=== PATIENT | female | born 1975 | race Caucasian/White ===

== ENCOUNTER → 2020-01-09 | Outpatient (CLI) | payer OTHER ==
--- NOTE | 2020-01-09 10:31 | XR ---
EXAMINATION TYPE: XR lumbar spine 2 or 3V DATE OF EXAM: 01/09/2020 CLINICAL HISTORY: Chronic lower back pain. Spondylosis of lumbar spine. TECHNIQUE: Frontal and lateral images of the lumbar spine obtained COMPARISON: None. FINDINGS: There are 5 lumbar type vertebral bodies identified. The lumbar spine shows satisfactory alignment without evidence of acute fracture or dislocation. Vertebral body heights and disk space he ights are within normal limits. There is anterior osteophytic spurring at L2-L3 and L3-L4. No evidenc e of spondylolisthesis. The overlying soft tissue appears unremarkable. IMPRESSION: 1. No acute fracture or dislocation is seen in the lumbar spine. No spondylolisthesis. 2. Mild degenerative endplate spurring from L2 through L4.
== END | disposition home or self-care (01) ==
LOC: RADXRYALE 08:07
PROVIDERS: ATTEND Internal Medicine
DX: M47.816 Spondylosis without myelopathy or radiculopathy, lumbar region (principal)
CPT/HCPCS: 72100

== ENCOUNTER → 2020-08-28 | Outpatient (CLI) | payer OTHER ==
--- NOTE | 2020-08-28 10:23 | XR ---
Left RIBS HISTORY: Pain 4 views of left RIBS Bone mineralization is maintained. There is no fracture evident. No pneumothorax or pleural effusion, no evident airspace disease noted in the left lung. IMPRESSION: No abnormality evident. Consider bone scan or additional imaging as indicated.
== END | disposition home or self-care (01) ==
LOC: RADXRMAIN 09:35
PROVIDERS: ATTEND Internal Medicine
DX: R07.81 Pleurodynia (principal)

== ENCOUNTER → 2020-10-13 | Outpatient (CLI) | payer OTHER ==
--- NOTE | 2020-10-13 14:01 | EST ---
EXERCISE STRESS AGE: 45 SEX: Female HT: 5'5" WT: 181 lbs. PROTOCOL: Axel STAGE: 3 DURATION OF EXERCISE: 9 minutes HEART RATE REST: 86 BLOOD PRESSURE REST: 122/73 MAXIMUM HEART RATE ACHIEVED: 163 MAXIMUM BLOOD PRESSURE: 165/104 85% MPHR: 147 100% MPHR: 173 METS: 10.5 INDICATIONS: Chest pain CLINICAL INFORMATION: This is a walking stress test, regular stress test. Baseline EKG revealed normal sinus rhythm with a precordial nonspecific ST and T-wave changes. Patient walked on a standard Axel protocol for a total duration of 9 minutes, achieved a maximal heart rate of 163 beats per minute developed fatigue, shortness of breath but did not have any angina or arrhythmia. EKG remained inconclusive. There was no arrhythmia. By EKG criteria, this is an inconclusive stress test with fair exercise capacity. There were minor resting EKG changes to begin with but patient did not have any angina or arrhythmia. FINAL IMPRESSION: 1. Fair exercise capacity. 2. Technically inconclusive stress test because of resting EKG changes. 3. Patient did not have any angina. MMODL / IJN: [id number] /
== END | disposition home or self-care (01) ==
LOC: RADNMMAIN 08:39
PROVIDERS: ATTEND Internal Medicine
DX: R07.9 Chest pain, unspecified (principal)
CPT/HCPCS: 93017

== ENCOUNTER → 2021-05-15 | Outpatient (CLI) | payer MEDICAID ==
--- NOTE | 2021-05-18 13:30 | MM ---
Reason for exam: screening (asymptomatic). Last mammogram was performed 8 years and 1 month ago. History: Took hormonal contraceptives for 6 years beginning at age 32. Physical Findings: A clinical breast exam by your physician is recommended on an annual basis and results should be correlated with mammographic findings. MG 3D Screening Mammo W/Cad Bilateral CC and MLO view(s) were taken. Prior study comparison: April 20, 2013, CAD bilateral diagnostic mammogram. October 28, 2010, CAD bilateral diagnostic mammogram. The breast tissue is heterogeneously dense. This may lower the sensitivity of mammography. There are benign appearing round calcifications bilaterally. Focal asymmetry 6mm middle depth upper aspect. ASSESSMENT: Incomplete: need additional imaging evaluation, BI-RAD 0 RECOMMENDATION: Special view mammogram of the left breast. If lesion persists on supplemental views, image directed ultrasound is recommended. [facility] will attempt to contact patient to return for supplemental views and ultrasound if indicated.
== END | disposition home or self-care (01) ==
LOC: RADMAMWWP 16:13
PROVIDERS: ATTEND Internal Medicine
DX: Z12.31 Encounter for screening mammogram for malignant neoplasm of breast (principal)
CPT/HCPCS: 77063; 77067

== ENCOUNTER → 2021-05-27 | Outpatient (CLI) | payer MEDICAID ==
--- NOTE | 2021-05-27 10:52 | MM ---
Reason for exam: additional evaluation requested from abnormal screening. Last mammogram was performed less than 1 month ago. History: Took hormonal contraceptives for 6 years beginning at age 32. Physical Findings: Nurse did not find any significant physical abnormalities on exam. MG 3D Work Up W/Cad LT Spot compression MLO, XCCL, and ML view(s) were taken of the left breast. Prior study comparison: May 15, 2021, bilateral MG 3d screening mammo w/cad. April 20, 2013, CAD bilateral diagnostic mammogram. The breast tissue is heterogeneously dense. This may lower the sensitivity of mammography. There is no discrete abnormality including area of concern on compression. No significant new findings when compared with previous films. These results were verbally communicated with the patient and result sheet given to the patient on 05/27/21. ASSESSMENT: Benign, BI-RAD 2 RECOMMENDATION: Return to routine screening mammogram schedule for both breasts.
== END | disposition home or self-care (01) ==
LOC: RADMAMWWP 09:09
PROVIDERS: ATTEND Internal Medicine
DX: R92.2 Inconclusive mammogram (principal)
CPT/HCPCS: 77061; 77065

== ENCOUNTER → 2023-01-17 | Outpatient (CLI) | payer OTHER ==
[2023-01-17 17:02] LABS: ALT 30 U/L (8-44); AST 25 U/L (13-35); Albumin 4.7 d/dL (3.8-4.9); Albumin/Globulin Ratio 1.96 Ratio (1.60-3.17); Alkaline Phosphatase 69 U/L (41-126); BUN/Creat Ratio 15.11 Ratio (12.00-20.00); Blood Urea Nitrogen 13.6 mg/dL (9.0-27.0); Calcium 10.1 mg/dL (8.7-10.3); Carbon Dioxide 27.3 mmol/L (21.6-31.8); Chloride 103 mmol/L (96-109); Chol/HDL Ratio 5.39 Ratio; Globulin 2.4 d/dL (1.6-3.3); Glucose 92 mg/dL (70-110); LDL Cholesterol,Calculated 144.8 mg/dL (0.0-131.0); Magnesium 2.2 mg/dL (1.5-2.4); Potassium 4.7 mmol/L (3.5-5.5); Sodium 139 mmol/L (135-145); Total Protein 7.1 d/dL (6.2-8.2)
[2023-01-17 17:20] LABS: Basophils # (A) 0.11 X 10*3/uL (0.00-0.10); Basophils % (A) 1.4 %; Eosinophils # (A) 0.32 X 10*3/uL (0.04-0.35); Eosinophils % (A) 3.9 %; HCT 43.7 % (37.2-46.3); HGB 14.6 d/dL (12.0-15.0); Lymphocytes # (A) 3.63 X 10*3/uL (0.90-5.00); Lymphocytes % (A) 44.8 %; MCH 29.5 pg (27.0-32.0); MCHC 33.4 d/dL (32.0-37.0); MCV 88.3 FL (80.0-97.0); Mean Platelet Volume 10.5 FL (9.5-12.2); Monocytes % (A) 6.2 %; NRBC Per 100 WBC 0 X 10*3/uL (0.00-0.01); Neutrophils # (A) 3.51 X 10*3/uL (1.80-7.70); Neutrophils % (A) 43.2 %; Platelet Count 332 X 10*3/uL (140-440); RBC 4.95 X 10*6/uL (4.10-5.20); RDW 11.9 % (11.5-14.5); WBC 8.11 X 10*3/uL (4.50-10.00)
[2023-01-17 20:18] LABS: Appearance,Urine Clear (Clear); Bilirubin,Urine Negative (Negative); Blood,Urine Trace (Negative); Color,Urine Yellow (Yellow); Ketones,Urine Negative (Negative); Nitrite,Urine Negative (Negative); PH, Urine 6.5; Specific Gravity,Urine 1.014 (1.001-1.030); Urobilinogen,Urine 0.2 E.U./DL
[2023-01-17 20:22] LABS: Bacteria,Urine None Seen (None Seen)
== END | disposition home or self-care (01) ==
LOC: LABWHC1 09:07
PROVIDERS: ATTEND Internal Medicine
DX: Z00.00 Encounter for general adult medical examination without abnormal findings (principal); I10 Essential (primary) hypertension; E03.9 Hypothyroidism, unspecified
CPT/HCPCS: 36415; 80053; 80061; 81001; 83036; 83735; 84439; 84443; 85025

== ENCOUNTER → 2023-07-15 | Outpatient (CLI) | payer BC ==
--- NOTE | 2023-07-15 10:25 | XR ---
EXAMINATION TYPE: XR lumbar spine 2 or 3V DATE OF EXAM: 07/15/2023 9:01 AM CLINICAL INDICATION:Female, 48 years old with history of S39.92XAINJURY OF LOWER BACK, INITIAL ENCOUN TER; [facility] COMPARISON: None TECHNIQUE: XR lumbar spine 2 or 3V - Frontal, lateral and coned in L5-S1 lateral views of the spine. FINDINGS: No evidence of any acute osseous pathology. No evidence of loss of vertebral body height i s seen. There is normal alignment of the lumbar vertebral bodies. Mild scattered disc space narrowing . Multilevel marginal osteophyte formation throughout the visualized spine. There is facet joint arth ropathy throughout the spine. Scattered at least mild neural foraminal stenosis. IMPRESSION: 1. No acute fracture. 2. Mild multilevel disc degeneration.
== END | disposition home or self-care (01) ==
LOC: RADXRMAIN 08:41
PROVIDERS: ATTEND Internal Medicine
DX: M51.36 Other intervertebral disc degeneration, lumbar region (principal)
CPT/HCPCS: 72100

== ENCOUNTER → 2023-09-15 | Outpatient (CLI) | payer BC ==
[2023-09-15 08:28] VITALS: BP 137/84; PULSE 69; RESP 16; TEMP 96.9
--- NOTE | 2023-09-15 13:31 | P.PAINPG ---
PQRS Measure Charge Sheet Comment: HISTORY OF PRESENT ILLNESS: A 48 yr old female as a referral from Dr Snider presents today w severe and chronic LBP x 6 mo secondary to DDD, spondylosis and facet arthropathy without myelopathy for evaluation. Pt states pain level is provoked at 6 /10 in intensity, constant, localized in the lumbar spine, predominantly axial, achy in character w occasional shooting pain towards the L pelvis and LLE. Pain is provoked by sitting and laying supine. Pain is alleviated by heat, ice, medications (Tramadol, Ibu, Tyl, Baclofen),. Oswestry axial pain score at 22. PMH: OA, HTN, Hyperlipidemia, Hypothyroidism PSH: Tubal Ligation, Uterine Ablation SH: Hx of tobacco use, Occasional ETOH use, No illicit drug use FH: Fa- CAD All: See list Meds: See list REVIEW OF ORGAN SYSTEMS: CONSTITUTIONAL: No fevers or chills. No recent weight loss. NEUROLOGICAL: + numbness and tingling along the distal extremities. No seizure disorders or headaches. MUSCULOSKELETAL: + pain PSYCHIATRIC: Denies current depression or suicidal thoug hts. Physical Examinations : Constitutional : Cooperative , not in acute distress . Neurologic : Cranial nerve II to XII intact. No focal neurological deficits. Psychiatric : alert & oriented x 3. Matching mood & appropriate affect. Judgment & insight intact. Musculoskeletal : Cervical Spine Motor strength in the deltoid and biceps: Normal right side. Normal Left side Motor strength biceps and the wrist extensors: Normal right side . Normal left side Motor strength in the triceps muscle: Normal right side. Normal left side Deep tendon reflexes: Normal at the biceps. Normal at Brachioradialis. Normal at triceps Vertebral body tenderness to deep palpation over Cervical facet loading test: positive bilaterally Spurling test: positive bilaterally Neck distraction test: positive bilaterally Pro sign: positive bilaterally Lumbar spine Motor strength lower extremities ,thigh and legs 5/5 Right side , 5/5 Left side Deep tendon reflexes : Normal Knee Jerk. Normal Ankle Jerk Vertebral body tenderness over L5 Bansal Test positive Lumbar facet Loading Test: positive Right / positive Left Range of motion of the lumbar spine Flexion 30 degrees, extension 10 degrees Straight Leg Raise test: Left/ Right positive at degrees Deisy test: positive right / positive left. Severe tenderness over the Sacroiliac joint on the Right / Left sides Gaenslen test: positive bilaterally Seated flexion test: positive bilaterally. Sacral spine : Severe tenderness over the Sacroiliac joint: right side / left side Range of motion: Flexion of the lumbar spine <60 degrees Range of motion: Extension of the lumbar spine <20 degrees Gaenslen's Test positive on R Deisy test: positive right side / left side Thigh Thrust Test Sacral Thrust Test Imaging: MRI noncontrast of the lumbar spine from 08/19/2023 reviewed Assessment/ Plan : Lumbar DDD Recommendation of PT x 6 wks M 51.36, M46.1 Would benefit from L paramedian ROSALIND L5-S1 or L SI injection. Risks, benefits of procedure discussed and patient verbalized understanding. Admits to anti- coagulant use or medical history of diabetes. Protocol for discontinuation/ continuation of medications yosi procedure discussed. Minimal anesthesia provided, if clinically indicated, consisting of Versed and Fentanyl. All questions answered. I have spent greater than 30 minutes on patient care today. Dr Grullon was available by phone for the evaluation of this patient. The time was used to review the medical records including relevant urine studies and Prescription history (MAPs), review of the available imaging, evaluation and examination of the patient, coordination of care with the medical staff and if applicable referring physicians, as well as creation of the medical record Home Medications: Ambulatory Orders Acetaminophen Tab [Tylenol Tab] 500 mg PO Q6H 09/15/23 Baclofen 10 mg PO 09/15/23 Ibuprofen [Motrin] 800 mg PO Q8H 09/15/23 Levothyroxine Sodium 100 mcg PO 09/15/23 traMADol HCL 50 mg PO Q6H 09/15/23 Controlled Substance Measures - Controlled Substance Measures Is patient prescribed a controlled substance at discharge?: No
== END ==
LOC: PNWHC3 07:31
PROVIDERS: ATTEND Specialist
DX: M54.50 Low back pain, unspecified (principal); M46.1 Sacroiliitis, not elsewhere classified; M71.38 Other bursal cyst, other site; M48.061 Spinal stenosis, lumbar region without neurogenic claudication; M51.36 Other intervertebral disc degeneration, lumbar region; M47.816 Spondylosis without myelopathy or radiculopathy, lumbar region; Z88.1 Allergy status to other antibiotic agents
CPT/HCPCS: 99211

== ENCOUNTER → 2023-10-27 | Outpatient (CLI) | payer BC ==
[2023-10-27 08:07] VITALS: BP 117/76; PULSE 83; RESP 16; TEMP 97.1
--- NOTE | 2023-10-27 14:45 | P.PAINPG ---
Objective - Vital Signs Vital signs: Intake & Output 10/26/23 10/27/23 10/27/23 18:59 06:59 18:59 Weight 82.554 kg PQRS Measure Charge Sheet Comment: HISTORY OF PRESENT ILLNESS: A 48 yr old female presents today w severe and chronic LBP x 6 mo secondary to DDD, spondylosis and facet arthropathy without myelopathy for evaluation. Pt states pain level is provoked at 10 /10 in intensity, constant, localized in the lumbar spine, predominantly axial, achy in character w occasional shooting pain towards the L pelvis and back of the LLE. Pain is provoked by sitting and laying supine. Pain is alleviated by PT x 5 wks which she is currently in, heat, ice, medications, repositioning and rest. Oswestry axial pain score at 22. Interventional procedures include Medications include Tramadol, Ibu, Tyl, Baclofen REVIEW OF ORGAN SYSTEMS: CONSTITUTIONAL: No fevers or chills. No recent weight loss. NEUROLOGICAL: + numbness and tingling along the distal extremities. No seizure disorders or headaches. MUSCULOSKELETAL: + pain PSYCHIATRIC: Denies current depression or suicidal thoughts. Physical Examinations : Constitutional : Cooperative , not in acute distress . Neurologic : Cranial nerve II to XII intact. No focal neurological deficits. Psychiatric : alert & oriented x 3. Matching mood & appropriate affect. Judgment & insight intact. Musculoskeletal : Cervical Spine Motor strength in the deltoid and biceps: Normal right side. Normal Left side Motor strength biceps and the wrist extensors: Normal right side . Normal left side Motor strength in the triceps muscle: Normal right side. Normal left side Deep tendon reflexes: Normal at the biceps. Normal at Brachioradialis. Normal at triceps Vertebral body tenderness to deep palpation over Cervical facet loading test: positive bilaterally Spurling test: positive bilaterally Neck distraction test: positive bilaterally Pro sign: positive bilaterally Lumbar spine Motor strength lower extremities ,thigh and legs 5/5 Right side , 5/5 Left side Deep tendon reflexes : Normal Knee Jerk. Normal Ankle Jerk Vertebral body tenderness Bansal Test positive Lumbar facet Loading Test: positive Right / positive Left Range of motion of the lumbar spine Flexion 30 degrees, extension 10 degrees Straight Leg Raise test: Left/ Right positive at degrees Deisy test: positive right / positive left. Severe tenderness over the Sacroiliac joint on the Right / Left sides Gaenslen test: positive bilaterally Seated flexion test: positive bilaterally. Sacral spine : Severe tenderness over the Sacroiliac joint: right side / left side Range of motion: Flexion of the lumbar spine <60 degrees Range of motion: Extension of the lumbar spine <20 degrees Gaenslen's Test positive on L Deisy test: positive right side / left side Thigh Thrust Test +L positive Sacral Thrust Test Imaging: MRI noncontrast of the lumbar spine from 08/19/2023 reviewed Assessment/ Plan : Lumbar DDD Recommendation of L SI injection #1. May need a series of injections for optimal pain relief. Risks, benefits of procedure discussed and patient verbalized understanding. Admits to anti- coagulant use or medical history of diabetes. Protocol for discontinuation/ continuation of medications yosi procedure discussed. All questions answered. I have spent greater than 30 minutes on patient care today. Dr Grullon was available by phone for the evaluation of this patient. The time was used to review the medical records including relevant urine studies and Prescription history (MAPs), review of the available imaging, evaluation and examination of the patient, coordination of care with the medical staff and if applicable referring physicians, as well as creation of the medical record PQRS Narrative: Hx Alcohol Use (MH) No Home Medications: Ambulatory Orders Acetaminophen Tab [Tylenol Tab] 500 mg PO Q6H 09/15/23 Baclofen 10 mg PO 09/15/23 Ibuprofen [Motrin] 800 mg PO Q8H 09/15/23 Levothyroxine Sodium 100 mcg PO 09/15/23 traMADol HCL 50 mg PO Q6H 09/15/23 Cyclobenzaprine [Flexeril] 5 mg PO HS PRN 30 Days #60 tab 10/27/23 Controlled Substance Measures - Controlled Substance Measures Is patient prescribed a controlled substance at discharge?: No
== END ==
LOC: PNWHC3 07:33
PROVIDERS: ATTEND Specialist
DX: M51.36 Other intervertebral disc degeneration, lumbar region (principal); Z88.1 Allergy status to other antibiotic agents
CPT/HCPCS: 99211

== ENCOUNTER → 2023-12-14 | Outpatient (CLI) | payer BC ==
--- NOTE | 2023-12-15 23:45 | BD ---
EXAMINATION TYPE: Axial Bone Density DATE OF EXAM: 12/14/2023 CLINICAL HISTORY: 48 years old Female. ICD-10 CODE: M85.851 OSTEOPENIA RIGHT HIP Height: 64.5 in Weight: 188 lbs HISTORY OF: History of Wrist Fracture: lt wrist age 8 MEDICATIONS: Thyroid Medications: yes Which medication: Synthroid How Lon+ years EXAM MEASUREMENTS: Bone mineral densitometry was performed using the [employer] System. Bone mineral density as measured about the Lumbar spine is: ----- L1-L4(G/cm2): 1.244 T Score Values are as follows: ----- L1: 0.1 ----- L2: 0.3 ----- L3: 1.0 ----- L4: 0.5 ----- L1-L4: 0.5 Z Score Values are as follows: ----- L1: -0.1 ----- L2: 0.1 ----- L3: 0.8 ----- L4: 0.2 ----- L1-L4: 0.3 Bone mineral density baseline Bone mineral density about the R hip (g/cm2): 1.018 Bone mineral density about the L hip (g/cm2): 1.010 T Score values are as follows: -----R Neck: -0.8 -----L Neck: -0.5 -----R Total: 0.1 -----L Total: 0.0 Z Score values are as follows: -----R Neck: -0.4 -----L Neck: -0.1 -----R Total: 0.1 -----L Total: 0.0 Bone mineral density baseline FRAX%s: The graph provided illustrates a 3.8% chance for a major osteoporotic fx and a 0.1% chance fo r the hips probability for fx in 10 years time. IMPRESSION: Normal (Values between +1 and -1 indicate normal bone mass). Consider repeating this study in 5 year s or sooner if there is some new clinical indication. NOTE: T-SCORE=SD OF THE YOUNG ADULT MEAN.
--- NOTE | 2023-12-18 14:44 | MM ---
Reason for Exam: Screening (asymptomatic). Last mammogram was performed 2 year(s) and 7 month(s) ago. Patient History: Menarche at age 13. First Full-Term at age 19. Postmenopausal. Hormonal Contraceptives for 6 years from age 32 until age 38. Currently using Estrogen and Progesterone, starting at age 46. Risk Values: Leesa 5 year model risk: 0.8%. NCI Lifetime model risk: 7.4%. Prior Study Comparison: 11/26/2009 Bilateral Screening Mammogram, [facility]. 10/28/2010 Bilateral Diagnostic Mammogram, [facility]. 04/20/2013 Bilateral Diagnostic Mammogram, [facility]. 05/15/2021 Bilateral Screening Mammogram, [facility]. 05/27/2021 Left Diagnostic Mammogram, [facility]. Tissue Density: The breasts are heterogeneously dense, which may obscure small masses. Findings: Analyzed By CAD. The pattern is symmetrical. No significant interval change is evident. No suspicious groups of microcalcifications, spiculated or lobular masses, architectural distortion or other secondary signs of malignancy are mammographically apparent. Overall Assessment: Benign, BI-RAD 2 Management: Screening Mammogram of both breasts in 1 year. A negative mammogram report should not preclude additional follow up of suspicious palpable abnormalities. Patient should continue monthly self breast exam. A clinical breast exam by your physician is recommended on an annual basis and results should be correlated with mammographic findings. Note on Leesa scores and lifetime risk: 1. A Leesa score greater than 3% is considered moderate risk. If this is the case, consider specialist referral to assess eligibility for a risk reducing agent. 2. If overall lifetime risk for the development of breast cancer is 20% or higher, the patient may qualify for future screening with alternating mammogram and breast MRI. Electronically signed and approved by: Viraj Gagnon D.O. Radiologis
== END | disposition home or self-care (01) ==
LOC: RADMAMWWP 07:06
PROVIDERS: ATTEND Internal Medicine
DX: Z12.31 Encounter for screening mammogram for malignant neoplasm of breast (principal); M85.851 Other specified disorders of bone density and structure, right thigh; Z78.0 Asymptomatic menopausal state
CPT/HCPCS: 77063; 77067; 77080

== ENCOUNTER → 2024-03-12 | Outpatient (CLI) | payer BC ==
--- NOTE | 2024-03-12 09:07 | US ---
EXAMINATION TYPE: US liver DATE OF EXAM: 03/12/2024 COMPARISON: [place] 2015, [place] 2014 CLINICAL INDICATION: Female, 48 years old with history of R74.01 ELEVATION OF LEVELS OF LIVER TRANSAM INASE L; Elevated liver transaminase. TECHNIQUE: Grayscale and color Doppler imaging of the right upper quadrant. FINDINGS: EXAM MEASUREMENTS: Liver Length: 16.5 cm Gallbladder Wall: 0.2 cm CBD: 0.4 cm Right Kidney: 11.1 x 5.5 x 4.6 cm MANUFACTURING MAINTENANCE MECHANIC NOTES: Exam is limited due to gas. Pancreas: Tail was obscured. Liver: Increased attenuation and echogenicity, very coarse/ heterogeneous. *Hypoechoic area seen n ear the gallbladder: 3.3 x 2.1 x 1.9 cm. Gallbladder: *Limited visibility of neck. Evidence for sonographic Richardson's sign: No CBD: Portions seen appear wnl Right Kidney: No hydronephrosis or masses seen IMPRESSION: 1. Nonspecific pattern of the liver suggestive of underlying hepatocellular disease or hepatic steato sis. 3.1 cm area of hypoechogenicity near the gallbladder fossa for which CT scan is recommended to a ssess for mass versus localized fatty sparing of the liver. [facility], , 03/12/2024 9:05 AM
== END | disposition home or self-care (01) ==
LOC: RADUSWWP 07:13
PROVIDERS: ATTEND Internal Medicine
DX: R74.01 Elevation of levels of liver transaminase levels (principal)
CPT/HCPCS: 76705

== ENCOUNTER → 2024-10-08 | Outpatient (CLI) | payer BC ==
--- NOTE | 2024-10-08 10:03 | XR ---
EXAMINATION TYPE: XR chest 2V DATE OF EXAM: 10/08/2024 9:58 AM COMPARISON: Chest radiographs from 08/28/2020. CLINICAL INDICATION: Female, 49 years old with history of Z01.810 ENCOUNTER FOR PREPROCEDURAL CARDIOV ASCULAR; [facility] TECHNIQUE: XR chest 2V Frontal and lateral views of the chest. FINDINGS: Lungs/Pleura: There is no evidence of pleural effusion, focal consolidation, or pneumothorax. Pulmonary vascularity: Unremarkable. Heart/mediastinum: Cardiomediastinal silhouette is unremarkable. Musculoskeletal: No acute osseous pathology. Other findings: None IMPRESSION: No acute cardiopulmonary disease/process. [facility], , 10/08/2024 10:01 AM
== END | disposition home or self-care (01) ==
LOC: RADXRMAIN 09:39
PROVIDERS: ATTEND Internal Medicine
DX: Z01.810 Encounter for preprocedural cardiovascular examination (principal)
CPT/HCPCS: 71046